=== PATIENT | female | born 1975 | race Caucasian/White ===

== ENCOUNTER 2016-12-13 10:50 | Emergency (ER) | payer OTHER ==
--- NOTE | 2016-12-13 12:56 | ED NURSING NOTES ---
Clinical Report - Nurses [facility] [place] [address] 12/13/2016 10:54 Patient: EUGENIO CARRERO TRIAGE Acuity: LEVEL 3. Chief Complaint: ABDOMINAL PAIN, NAUSEA and DIARRHEA. Alert. No acute distress. SEPSIS SCREEN: Sepsis Screen. Negative (no infection suspected/documented). --11:08 Jackie Mcclellan R.N. 11:00 12/13/16. BP: 104/46. HR: 72. RR: 20. O2 saturation: 100% on room air. Temp: 97.4 F. Pain level now: 03/01. --11:08 Jackie Mcclellan R.N. Weight: 100.6 kg stated. Height/Length: 62 inches Per Patient. BMI: 40.6. --11: Jackie Mcclellan R.N. Medications None. --11: Jackie Mcclellan R.N. Medication/allergy information source: the patient. --11: Jackie Mcclellan R.N. Allergies Non-Steroidal Antinflammatory. (hurts stomach) --11: Jackie Mcclellan R.N. History Arrived by private vehicle. Historian: patient. Accompanied by spouse. Primary physician (Gabino). This started last night. Describes the quality as "pain" and ( throbbing). Relates location as in the right lower quadrant. Notes pain level as 5/10 on arrival and 7/10 at maximum. Reports last BM was 4 am. Last oral intake by patient was (3 am). 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 PAST MEDICAL HX: Immunizations: up-to-date. Last normal menstrual period unknown. Sexual history - sexually active. Has had a tubal ligation. SOCIAL HX: Never smoker. Occasional alcohol use. Recent travel by car in the last two (2) weeks- [facility]. FALL RISK ASSESSMENT: Fall risk assessment completed. No fall risk identified. NUTRITIONAL RISK ASSESSMENT: The nutritional risk assessment revealed no deficiencies. FUNCTIONAL ASSESSMENT: Functional assessment: no impairments noted. LEARNING NEEDS ASSESSMENT: The learning needs assessment revealed no barriers. SKIN INTEGRITY ASSESSMENT: Skin integrity risk assessment completed. No skin integrity risk identified. --11: Jackie Mcclellan R.N. PROBLEMS: Migraine Headache. --11: Jackie Mcclellan R.N. ADDITIONAL SURGERIES: Cholecystectomy. . Cystoscopy. Hernia Repair. Tubal Ligation. --11: Jackie Mcclellan R.N. Foot surgery. Sinus Surgery. --11: Jacike Mcclellan R.N. Assessment GENERAL / NEURO / PSYCH: Alert. Oriented X 4. Appears in no acute distress. Patient appears calm and cooperative. RESPIRATORY: Respirations not labored. CVS: Capillary refill less than 2 seconds. GI / : Abdomen soft and nontender. SKIN: Mucous membranes are pink. Skin is warm and dry. --11: Jackie Mcclellan R.N. Interventions ID band on patient. To treatment room. --11: Jackie Mcclellan R.N. PHYSICAL ASSESSMENT 11:12/13/16. Ambulatory to room. Patient gowned. GENERAL / NEURO / PSYCH: Alert. Oriented X 4. Appears in no acute distress. HEENT: Mucous membranes are pink. RESPIRATORY: Respirations not labored. CVS: Capillary refill less than 2 seconds. GI / : Abdomen soft and nontender. SKIN: Skin is warm and dry. --11: Jackie Mcclellan R.N. NURSING PROGRESS NOTES 11:12/13/16. Patient gowned. Reassurance given. Two patient identifiers checked. Call light placed in reach. Side rails up x 1. Bed placed in lowest position. Brakes of bed on. Patient ready for evaluation- chart flagged and ED physician notified. --11: Jackie Mcclellan R.N. 11:43 12/13/2016 Site #1 started via IV in the right antecubital space with an 20g angiocath, with aseptic technique and good blood return; one attempt. Blood drawn: rainbow set. Labeled in the presence of the patient and sent to the lab. --11:43 Jackie Mcclellan R.N. 11:43 12/13/2016 Started bag #1 1000 mL IV Fluids IV NS (Saline); at 999 mL/hr over 1 hour(s) via site #1 via IV pump. Allergies verified and confirmed 5 rights. IV patency established. IV site checked: no pain, redness, or swelling. IV flushed thoroughly pre- and post-medication administration. --11:43 Jackie Mcclellan R.N. 11:45 12/13/2016 Zofran (Ondansetron HCl) IVP 4 mg given over 2 minute(s) via site #1. Allergies verified and confirmed 5 rights. IV patency established. IV site checked: no pain, redness, or swelling. IV flushed thoroughly pre- and post-medication administration. IVP given by RN. --11:45 Jackie Mcclellan R.N. 11:45 12/13/2016 Morphine IVP 4 mg given over 2 minute(s) via site #1. Allergies verified, confirmed 5 rights and sedative warning given to the patient. IV patency established. IV site checked: no pain, redness, or swelling. IV flushed thoroughly pre- and post-medication administration. IVP given by RN. --11:45 Jackie Mcclellan R.N. 12:20 12/13/2016 Morphine IVP Response: no adverse reaction symptoms have improved. --12:35 Jackie Mcclellan R.N. 12:31 12/13/2016 Bentyl (Dicyclomine HCl) PO 20 mg given. Allergies verified and confirmed 5 rights. --12:31 Jackie Mcclellan R.N. 12:43 12/13/2016 IV Fluids IV NS Discontinued: bag #1 infused. Total amount infused: 1000 mL. IV patency established. IV site checked: no pain, redness, or swelling. IV flushed thoroughly. --12:43 Jackie Mcclellan R.N. 13:06 12/13/2016 Site #1 removed upon discharge. Catheter intact. Manual pressure and bandage applied. --13:16 Jackie Mcclellan R.N. DISPOSITION / DISCHARGE Departure time: 13:Dec 13 2016. Condition at departure: improved and stable. No learning barriers present. Discharge instructions provided and reviewed with the patient and spouse. Reviewed medication(s) side effects, precautions and dosing information. Prescription(s) given to the patient (cm osorio). Reviewed liquid diet. Work note given. Patient and spouse verbalized understanding. Written instructions provided in Polish. The patient was discharged by the physician. She was discharged home and accompanied by spouse. She left the Emergency Department ambulatory and via private vehicle. Spouse driving. --13:15 Jackie Mcclellan R.N. 13:13 12/13/16. BP: 107/56. HR: 68. RR: 18. O2 saturation: 100% on room air. Temp: 98 F (oral). Pain level now: 11/30. --13:15 Jackie Mcclellan R.N. Locked/Released at 12/13/2016 13:16 by Jackie Mcclellan R.N.
--- NOTE | 2016-12-13 12:56 | ED ORDER SUMMARY ---
..... Patient: EUGENIO CARRERO OrderSheet [facility] VisitID: [id number] [address] [place] [address] 41y, F Registration Date/Time: 12/13/2016 ORDER SHEET Weight: 100.6 kg (stated) Allergies: Non-Steroidal Antinflammatory GENERAL ORDERS: CBC w Diff Urgent (11:12/13/2016 Rick Mccurdy) (Ack 11:27 TBergley) (11:45 MWinterer R.N.) CMP Urgent (11:12/13/2016 Rick Mccurdy) (Ack 11:27 TBergley) (11:45 MWinterer R.N.) UA-Culture if indicated Urgent (11:12/13/2016 Rick Mccurdy) (Ack 11:27 TBergley) (12:27 TBergley) Amylase Urgent (:12/13/2016 Rick Mccurdy) (Ack 11:27 TBergley) (11:45 MWinterer R.N.) Lipase Urgent (11:12/13/2016 Rick Mccurdy) (Ack 11:27 TBergley) (11:45 MWinterer R.N.) Urine Urgent (11:12/13/2016 Rick Mccurdy) (Ack 11:27 TBergley) (12:27 TBergley) MEDICATION ORDERS: Bentyl PO 20 mg (NOW) (12:12/13/2016 Rick Mccurdy) (Ack 12:28 MWinterer R.N.) (12:31 MWinterer R.N.) IV FLUIDS: IV NS : initial bolus none -, then 1000 mL/hr for X1 (NOW) (11:12/13/2016 Rick Mccurdy) (Ack 11:26 MWinterer R.N.) (11:43 MWinterer R.N.) Zofran IV 4 mg (NOW) (11:12/13/2016 Rick Mccurdy) (Ack 11:26 MWinterer R.N.) (11:45 MWinterer R.N.) Morphine IV 4 mg (HIGH ALERT MEDICATION, NOW) (11:25 12/13/2016 Rick Mccurdy) (Ack 11:26 MWinterer R.N.) (11:45 MWinterer R.N.) ORDER SHEET NOTES: [Electronically signed by Rony Rodriguez Dr. (13:02 12/13/2016)] [Electronically signed by Jackie Mcclellan R.N. (13:16 12/13/2016)] [Electronically locked/signed by Jackie Mcclellan R.N. (13:16 12/13/2016)]
--- NOTE | 2016-12-13 12:56 | ED CLINICAL REPORT ---
Clinical Report - Physicians/Mid Levels [facility] [address] [place] [address] 12/13/2016 10:54 Patient: EUGENIO CARRERO Time Seen: 11:03; initial patient contact. Arrived- By private vehicle. Historian- patient. HISTORY OF PRESENT ILLNESS Chief Complaint: ABDOMINAL PAIN. At its maximum, severity described as mild. When seen in the E.D., severity described as mild. Modifying factors. Not worsened by anything. Not relieved by anything. It is described as cramping. No radiation. It is described as located in the right abdomen and right lower quadrant. This started last night and is still present. The patient has had nausea, loss of appetite, vomiting and diarrhea. No recent travel. Similar symptoms previously: None. Recent medical care: The patient was seen recently in a clinic (sent here from .). REVIEW OF SYSTEMS No constipation, black stools, hematemesis, difficulty with urination or pain with urination. No urinary frequency, bloody stools, fever or chills. Denies current . Last bowel movement: recently. All systems otherwise negative, except as recorded above. PAST HISTORY Migraine Headache. SURGERIES: Cholecystectomy. . Cystoscopy. Hernia Repair. Tubal Ligation. Foot surgery. Sinus Surgery. SOCIAL HISTORY Never smoker. Occasional alcohol use. No drug use. ADDITIONAL NOTES The nursing notes have been reviewed. PHYSICAL EXAM Vital Signs: 12/13/2016 11:00 BP: 104/46. HR: 72. RR: 20. O2 saturation: 100%. Temp: 97.4 F. Pain level now: 7/10. Have been reviewed. Hypotensive. Heart rate normal. Respiratory rate normal. Temperature normal. Oxygen saturation normal. Appearance: Alert. Oriented X3. No acute distress. Eyes: Eyes normal inspection. No scleral icterus. ENT: Pharynx normal. CVS: Normal heart rate and rhythm. Heart sounds normal. Respiratory: No respiratory distress. Breath sounds normal. Abdomen: Soft. Mild tenderness in the right side of the abdomen. No guarding, rebound tenderness or Castillo's, obturator or psoas sign present. Bowel sounds normal. No organomegaly. No mass. Back: Normal inspection. No CVA tenderness. Skin: Skin warm and dry. Normal skin color. No rash. Extremities: No lower extremity edema. Neuro: Oriented X 3. LABS, X-RAYS, AND EKG Laboratory Tests: UA-Culture if indicated: (BOB: 12/13/2016 12:20) ( [facility] 12/13/2016 12:47) Final results Test Result Flag Units (Reference) URINE COLOR YELLOW URINE APPEARANCE SL CLOUDY URINE GLUCOSE NEGATIVE (NEGATIVE) URINE BILIRUBIN NEGATIVE (NEGATIVE) URINE KETONE NEGATIVE (NEGATIVE) URINE SPECIFIC GRAVITY 1.010 (1.010-1.030) URINE PH 6.0 (5.0-8.0) URINE PROTEIN NEGATIVE (NEGATIVE) URINE UROBILINOGEN 0.2 EU/dL (0.2-1.0) URINE NITRITE NEGATIVE (NEGATIVE) URINE BLOOD 1+ (NEGATIVE) URINE LEUK ESTERASE NEGATIVE (NEGATIVE) URINE RBC 1-3 rbc/hpf (0-1) URINE WBC 1-3 wbc/hpf (0-1) URINE EPITHELIAL CELLS 10-15 EPI/hpf (0-5) URINE BACTERIA TRACE (<1+) (NONE SEEN) URINE COMMENT CULT NOT INDICATED 1+ MUCOUSURINE CULTURES ARE SET-UP BASED ON THE FOLLOWING CRITERIA:POSITIVE NITRITEPOSITIVE LEUKOCYTE ESTERASEGREATER THAN 10 WHITE BLOOD CELLSMODERATE (2+) OR GREATER BACTERIA Urine: (BOB: 12/13/2016 12:20) ( [facility] 12/13/2016 12:42) Final results Test Result Flag Units (Reference) URINE NEGATIVE CBC w Diff: (BOB: 12/13/2016 11:45) ( [facility] 12/13/2016 12:01) Final results Test Result Flag Units (Reference) WHITE BLOOD COUNT 4.9 K/uL (4.5-11.5) RED BLOOD COUNT 4.52 M/uL (4.00-5.20) HEMOGLOBIN 13.4 gm/dL (12.0-16.0) HEMATOCRIT 41.0 % (36.0-46.0) MEAN CELL VOLUME 91 fL (80-100) MEAN CORPUSCULAR HGB 30 pg (26-34) MEAN CORPUSCULAR HGB CONC 33 g/dL (31-37) RED CELL DISTRIBUTION WIDTH 13.9 % (11.6-14.8) PLATELET COUNT 246 K/uL (150-400) NEUTROPHIL % 51.8 % (50-75) LYMPH % 33.4 % (25-40) MONO % 9.5 % (3-14) EOSINOPHIL % 4.9 H % (0-4) BASOPHIL % 0.4 % (0-2) CMP: (BOB: 12/13/2016 11:45) ( MsgRcvd 12/13/2016 12:10) Final results Test Result Flag Units (Reference) GLUCOSE 80 mg/dL (70-110) BUN 18 mg/dL (7-18) CREATININE 0.8 mg/dL (0.6-1.3) Estimated GFR >60 mL/min Estimated GFR- >60 mL/min Note: Persistent reduction over 3 months in eGFR<60 mL/min/1.73 m2 defines CKD. Patients with eGFR values>=60 mL/min/1.73 m2 may also have CKD if evidence ofpersistent proteinuria. Additional information may be foundat www.kidney.org. SODIUM 141 mmol/L (136-145) POTASSIUM 3.7 mmol/L (3.5-5.1) CHLORIDE 105 mmol/L (98-107) CARBON DIOXIDE 28 mmol/L (21-32) CALCIUM 8.6 mg/dL (8.5-10.1) TOTAL PROTEIN 7.1 g/dL (6.4-8.2) ALBUMIN 3.5 g/dL (3.3-5.0) BILIRUBIN, TOTAL 0.5 mg/dL (0.0-1.0) ALKALINE PHOSPHATASE 72 U/L (46-116) AST (SGOT) 21 U/L (15-37) ALT (SGPT) 22 U/L (12-78) LIPASE 128 U/L (73-393) AMYLASE 77 U/L (25-115) . PROGRESS AND PROCEDURES Course of Care: 13:16. Evaluation after repeat exam, IV fluids, IV antiemetic and antispasmodic. Physical exam findings are improved. Symptoms much better. Disposition: Discharged home in good and improved condition. Condition: good. CLINICAL IMPRESSION Acute viral gastroenteritis. INSTRUCTIONS Do not work tomorrow. Drink plenty of fluids. Your Current Medications: CONTINUE TAKING THE FOLLOWING MEDICATIONS: None*. Prescription Medications: Zofran (orally disintegrating tablets) 4 mg: take 1 orally every 6 hours as needed for nausea and vomiting. Dispense ten (10). No refill. Substitution is permissible. Bentyl 20 mg tablets: take 1 orally every 6 hours as needed for abdominal cramps or abdominal discomfort. Dispense thirty (30). No refill. Substitution is permissible. Follow-up: Follow up with your doctor in about two days. Call for an appointment. Screening today revealed the patient's blood pressure to be in the normal range. (Electronically signed by Rony Rodriguez Dr. 12/13/2016 13:02)
--- NOTE | 2016-12-13 12:56 | ED NURSING NOTES ---
Clinical Report - Nurses [facility] [place] [address] 12/13/2016 10:54 Patient: EUGENIO CARRERO TRIAGE Acuity: LEVEL 3. Chief Complaint: ABDOMINAL PAIN, NAUSEA and DIARRHEA. Alert. No acute distress. SEPSIS SCREEN: Sepsis Screen. Negative (no infection suspected/documented). --11:08 Jackie Mcclellan R.N. 11:00 12/13/16. BP: 104/46. HR: 72. RR: 20. O2 saturation: 100% on room air. Temp: 97.4 F. Pain level now: 03/01. --11:08 Jackie Mcclellan R.N. Weight: 100.6 kg stated. Height/Length: 62 inches Per Patient. BMI: 40.6. --11: Jackie Mcclellan R.N. Medications None. --11: Jackie Mcclellan R.N. Medication/allergy information source: the patient. --11: Jackie Mcclellan R.N. Allergies Non-Steroidal Antinflammatory. (hurts stomach) --11: Jackie Mcclellan R.N. History Arrived by private vehicle. Historian: patient. Accompanied by spouse. Primary physician (Gabino). This started last night. Describes the quality as "pain" and ( throbbing). Relates location as in the right lower quadrant. Notes pain level as 5/10 on arrival and 7/10 at maximum. Reports last BM was 4 am. Last oral intake by patient was (3 am). 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 PAST MEDICAL HX: Immunizations: up-to-date. Last normal menstrual period unknown. Sexual history - sexually active. Has had a tubal ligation. SOCIAL HX: Never smoker. Occasional alcohol use. Recent travel by car in the last two (2) weeks- [facility]. FALL RISK ASSESSMENT: Fall risk assessment completed. No fall risk identified. NUTRITIONAL RISK ASSESSMENT: The nutritional risk assessment revealed no deficiencies. FUNCTIONAL ASSESSMENT: Functional assessment: no impairments noted. LEARNING NEEDS ASSESSMENT: The learning needs assessment revealed no barriers. SKIN INTEGRITY ASSESSMENT: Skin integrity risk assessment completed. No skin integrity risk identified. --11: Jackie Mcclellan R.N. PROBLEMS: Migraine Headache. --11: Jackie Mcclellan R.N. ADDITIONAL SURGERIES: Cholecystectomy. . Cystoscopy. Hernia Repair. Tubal Ligation. --11: Jackie Mcclellan R.N. Foot surgery. Sinus Surgery. --11: Jackie Mcclellan R.N. Assessment GENERAL / NEURO / PSYCH: Alert. Oriented X 4. Appears in no acute distress. Patient appears calm and cooperative. RESPIRATORY: Respirations not labored. CVS: Capillary refill less than 2 seconds. GI / : Abdomen soft and nontender. SKIN: Mucous membranes are pink. Skin is warm and dry. --11: Jackie Mcclellan R.N. Interventions ID band on patient. To treatment room. --11: Jackie Mcclellan R.N. PHYSICAL ASSESSMENT 11:12/13/16. Ambulatory to room. Patient gowned. GENERAL / NEURO / PSYCH: Alert. Oriented X 4. Appears in no acute distress. HEENT: Mucous membranes are pink. RESPIRATORY: Respirations not labored. CVS: Capillary refill less than 2 seconds. GI / : Abdomen soft and nontender. SKIN: Skin is warm and dry. --11: Jackie Mcclellan R.N. NURSING PROGRESS NOTES 11:12/13/16. Patient gowned. Reassurance given. Two patient identifiers checked. Call light placed in reach. Side rails up x 1. Bed placed in lowest position. Brakes of bed on. Patient ready for evaluation- chart flagged and ED physician notified. --11: Jackie Mcclellan R.N. 11:43 12/13/2016 Site #1 started via IV in the right antecubital space with an 20g angiocath, with aseptic technique and good blood return; one attempt. Blood drawn: rainbow set. Labeled in the presence of the patient and sent to the lab. --11:43 Jackie Mcclellan R.N. 11:43 12/13/2016 Started bag #1 1000 mL IV Fluids IV NS (Saline); at 999 mL/hr over 1 hour(s) via site #1 via IV pump. Allergies verified and confirmed 5 rights. IV patency established. IV site checked: no pain, redness, or swelling. IV flushed thoroughly pre- and post-medication administration. --11:43 Jackie Mcclellan R.N. 11:45 12/13/2016 Zofran (Ondansetron HCl) IVP 4 mg given over 2 minute(s) via site #1. Allergies verified and confirmed 5 rights. IV patency established. IV site checked: no pain, redness, or swelling. IV flushed thoroughly pre- and post-medication administration. IVP given by RN. --11:45 Jackie Mcclellan R.N. 11:45 12/13/2016 Morphine IVP 4 mg given over 2 minute(s) via site #1. Allergies verified, confirmed 5 rights and sedative warning given to the patient. IV patency established. IV site checked: no pain, redness, or swelling. IV flushed thoroughly pre- and post-medication administration. IVP given by RN. --11:45 Jackie Mcclellan R.N. 12:20 12/13/2016 Morphine IVP Response: no adverse reaction symptoms have improved. --12:35 Jackie Mcclellan R.N. 12:31 12/13/2016 Bentyl (Dicyclomine HCl) PO 20 mg given. Allergies verified and confirmed 5 rights. --12:31 Jackie Mcclellan R.N. 12:43 12/13/2016 IV Fluids IV NS Discontinued: bag #1 infused. Total amount infused: 1000 mL. IV patency established. IV site checked: no pain, redness, or swelling. IV flushed thoroughly. --12:43 Jackie Mcclellan R.N. 13:06 12/13/2016 Site #1 removed upon discharge. Catheter intact. Manual pressure and bandage applied. --13:16 Jackie Mcclellan R.N. DISPOSITION / DISCHARGE Departure time: 13:Dec 13 2016. Condition at departure: improved and stable. No learning barriers present. Discharge instructions provided and reviewed with the patient and spouse. Reviewed medication(s) side effects, precautions and dosing information. Prescription(s) given to the patient (cm osorio). Reviewed liquid diet. Work note given. Patient and spouse verbalized understanding. Written instructions provided in Turkmen. The patient was discharged by the physician. She was discharged home and accompanied by spouse. She left the Emergency Department ambulatory and via private vehicle. Spouse driving. --13:15 Jackie Mcclellan R.N. 13:13 12/13/16. BP: 107/56. HR: 68. RR: 18. O2 saturation: 100% on room air. Temp: 98 F (oral). Pain level now: 11/30. --13:15 Jackie Mcclellan R.N. Locked/Released at 12/13/2016 13:16 by Jackie Mcclellan R.N.
--- NOTE | 2016-12-13 12:56 | ED ORDER SUMMARY ---
..... Patient: EUGENIO CARRERO OrderSheet [facility] VisitID: [id number] [address] [place] [address] 41y, F Registration Date/Time: 12/13/2016 ORDER SHEET Weight: 100.6 kg (stated) Allergies: Non-Steroidal Antinflammatory GENERAL ORDERS: CBC w Diff Urgent (11:12/13/2016 Rick Mccurdy) (Ack 11:27 TBergley) (11:45 MWinterer R.N.) CMP Urgent (11:12/13/2016 Rick Mccurdy) (Ack 11:27 TBergley) (11:45 MWinterer R.N.) UA-Culture if indicated Urgent (11:12/13/2016 Rick Mccurdy) (Ack 11:27 TBergley) (12:27 TBergley) Amylase Urgent (:12/13/2016 Rick Mccurdy) (Ack 11:27 TBergley) (11:45 MWinterer R.N.) Lipase Urgent (11:12/13/2016 Rick Mccurdy) (Ack 11:27 TBergley) (11:45 MWinterer R.N.) Urine Urgent (11:12/13/2016 Rick Mccurdy) (Ack 11:27 TBergley) (12:27 TBergley) MEDICATION ORDERS: Bentyl PO 20 mg (NOW) (12:12/13/2016 Rick Mccurdy) (Ack 12:28 MWinterer R.N.) (12:31 MWinterer R.N.) IV FLUIDS: IV NS : initial bolus none -, then 1000 mL/hr for X1 (NOW) (11:12/13/2016 Rick Mccurdy) (Ack 11:26 MWinterer R.N.) (11:43 MWinterer R.N.) Zofran IV 4 mg (NOW) (11:12/13/2016 Rick Mccurdy) (Ack 11:26 MWinterer R.N.) (11:45 MWinterer R.N.) Morphine IV 4 mg (HIGH ALERT MEDICATION, NOW) (11:25 12/13/2016 Rick Mccurdy) (Ack 11:26 MWinterer R.N.) (11:45 MWinterer R.N.) ORDER SHEET NOTES: [Electronically signed by Rony Rodriguez Dr. (13:02 12/13/2016)] [Electronically signed by Jackie Mcclellan R.N. (13:16 12/13/2016)] [Electronically locked/signed by Jackie Mcclellan R.N. (13:16 12/13/2016)]
--- NOTE | 2016-12-13 13:16 | ED MAR SUMMARY ---
..... Medication Administration Record [facility] [address] [place] [address] Patient: EUGENIO CARRERO Visit ID: [id number] 41y, F Weight: 100.6 kg Height/Length: 62 in BMI: 40.6 ALLERGIES: Non-Steroidal Antinflammatory Start 11:12/13/2016 Jackie Mcclellan R.N., Stop 12:12/13/2016 Jackie Mcclellan R.N. Medication Administered: IV NS (SALINE), Dose: IV Fluids over 1 hour(s), Rate: 999 mL/hr, Dispensed: 1000 mL bag, Site: #1 right AC. Medication Ordered: IV NS : initial bolus none -, then 1000 mL/hr for X1 (NOW). Given 11:12/13/2016 Jackie Mcclellan R.N. Medication Administered: ZOFRAN [IVP] (ONDANSETRON HCL), Dose: 4 mg IVP over 2 minute(s), Site: #1 right AC. Medication Ordered: Zofran IV 4 mg (NOW). Given 11:12/13/2016 Jackie Mcclellan R.N. Medication Administered: MORPHINE [IVP], Dose: 4 mg IVP over 2 minute(s), Site: #1 right AC. Medication Ordered: Morphine IV 4 mg (HIGH ALERT MEDICATION, NOW). Given 12:12/13/2016 Jackie Mcclellan R.N. Medication Administered: BENTYL [PO] (DICYCLOMINE HCL), Dose: 20 mg PO. Medication Ordered: Bentyl PO 20 mg (NOW).
--- NOTE | 2016-12-13 13:16 | ED MED RECONCILIATION SUMMARY ---
Patient: EUGENIO CARRERO Medication Reconciliation Report [facility] VisitID: [id number] [address] [place] [address] 41y, F Registration Date/Time: 12/13/2016 Weight: 100.6 kg Height/Length: 62 in. BMI: 40.6 ALLERGIES: Non-Steroidal Antinflammatory The patient's Home Medications are listed below: NONE. The source(s) of the original Home Medication information: patient The following Medications were given to the patient in the Emergency Department: IV NS IV Fluids bolus 0, then 999 mL/hr, administered: 12/13/2016 11:43:00 AM Zofran [IVP] IVP 4 mg, administered: 12/13/2016 11:45:00 AM Morphine [IVP] IVP 4 mg, administered: 12/13/2016 11:45:00 AM Bentyl [PO] PO 20 mg, administered: 12/13/2016 12:31:00 PM The following Medications were prescribed to the patient: Zofran (orally disintegrating tablets) 4 mg: take 1 orally every 6 hours as needed for nausea and vomiting. Dispense ten (10). No refill. Substitution is permissible. -- Rony Rodriguez Dr. Bentyl 20 mg tablets: take 1 orally every 6 hours as needed for abdominal cramps or abdominal discomfort. Dispense thirty (30). No refill. Substitution is permissible. -- Rony Rodriguez Dr.
--- NOTE | 2016-12-13 13:16 | ED MAR SUMMARY ---
..... Medication Administration Record [facility] [address] [place] [address] Patient: EUGENIO CARRERO Visit ID: [id number] 41y, F Weight: 100.6 kg Height/Length: 62 in BMI: 40.6 ALLERGIES: Non-Steroidal Antinflammatory Start 11:12/13/2016 Jackie Mcclellan R.N., Stop 12:12/13/2016 Jackie Mcclellan R.N. Medication Administered: IV NS (SALINE), Dose: IV Fluids over 1 hour(s), Rate: 999 mL/hr, Dispensed: 1000 mL bag, Site: #1 right AC. Medication Ordered: IV NS : initial bolus none -, then 1000 mL/hr for X1 (NOW). Given 11:12/13/2016 Jackie Mcclellan R.N. Medication Administered: ZOFRAN [IVP] (ONDANSETRON HCL), Dose: 4 mg IVP over 2 minute(s), Site: #1 right AC. Medication Ordered: Zofran IV 4 mg (NOW). Given 11:12/13/2016 Jackie Mcclellan R.N. Medication Administered: MORPHINE [IVP], Dose: 4 mg IVP over 2 minute(s), Site: #1 right AC. Medication Ordered: Morphine IV 4 mg (HIGH ALERT MEDICATION, NOW). Given 12:12/13/2016 Jackie Mcclellan R.N. Medication Administered: BENTYL [PO] (DICYCLOMINE HCL), Dose: 20 mg PO. Medication Ordered: Bentyl PO 20 mg (NOW).
--- NOTE | 2016-12-13 13:16 | ED MED RECONCILIATION SUMMARY ---
Patient: EUGENIO CARRERO Medication Reconciliation Report [facility] VisitID: [id number] [address] [place] [address] 41y, F Registration Date/Time: 12/13/2016 Weight: 100.6 kg Height/Length: 62 in. BMI: 40.6 ALLERGIES: Non-Steroidal Antinflammatory The patient's Home Medications are listed below: NONE. The source(s) of the original Home Medication information: patient The following Medications were given to the patient in the Emergency Department: IV NS IV Fluids bolus 0, then 999 mL/hr, administered: 12/13/2016 11:43:00 AM Zofran [IVP] IVP 4 mg, administered: 12/13/2016 11:45:00 AM Morphine [IVP] IVP 4 mg, administered: 12/13/2016 11:45:00 AM Bentyl [PO] PO 20 mg, administered: 12/13/2016 12:31:00 PM The following Medications were prescribed to the patient: Zofran (orally disintegrating tablets) 4 mg: take 1 orally every 6 hours as needed for nausea and vomiting. Dispense ten (10). No refill. Substitution is permissible. -- Rony Rodriguez Dr. Bentyl 20 mg tablets: take 1 orally every 6 hours as needed for abdominal cramps or abdominal discomfort. Dispense thirty (30). No refill. Substitution is permissible. -- Rony Rodriguez Dr.
--- NOTE | 2016-12-13 13:16 | ED DISCHARGE INSTRUCTIONS ---
Patient: EUGENIO CARRERO General Instructions [facility] VisitID: [id number] [place] [address] 41y, F Registration Date/Time: 12/13/2016 Acute viral gastroenteritis. INSTRUCTIONS Do not work tomorrow. Drink plenty of fluids. Your Current Medications: CONTINUE TAKING THE FOLLOWING MEDICATIONS: None*. Prescription Medications: Zofran (orally disintegrating tablets) 4 mg: take 1 orally every 6 hours as needed for nausea and vomiting. Dispense ten (10). No refill. Substitution is permissible. Bentyl 20 mg tablets: take 1 orally every 6 hours as needed for abdominal cramps or abdominal discomfort. Dispense thirty (30). No refill. Substitution is permissible. Follow-up: Follow up with your doctor in about two days. Call for an appointment. Screening today revealed the patient's blood pressure to be in the normal range. ADDITIONAL INFORMATION Viral Gastroenteritis (6Yr-Adult) Gastroenteritis is another name for thestomach flu.It is most often caused by a virus that affects the stomach and intestinal tract. Symptoms include stomach cramping and fever, vomiting and/or diarrhea, and can last from 2 to 7 days. The danger from repeated vomiting or diarrhea is dehydration. This is the loss of too much water and minerals from the body. When this occurs, body fluids must be replaced. Antibiotics are not effective for this illness, but simple home treatment will be helpful. Home Care If symptoms are severe, rest at home for the next 24 hours. Avoid tobacco, caffeine, and alcohol use, which can worsen symptoms. Acetaminophen (Tylenol) or ibuprofen (Motrin, Advil) may be usedfor fever or pain unless another medication was prescribed. NOTE: If you have chronic liver or kidney disease or ever had a stomach ulcer or GI bleeding, talk with your doctor before using these medicines. Aspirin should never be used in anyone under 18 years of age who is ill with a fever. It may cause severe liver damage. If medicines for diarrhea or vomiting were prescribed, be sure they are takenonly as directed. If vomiting, drink small amounts of clear fluids (such as water, sports drinks, clear sodas) at frequent intervals to prevent dehydration. Start with 1 to 2 tablespoons every 10 minutes. Once vomiting stops, follow these guidelines: During The First 12 To 24 Hours follow the diet below: Beverages: Sport drinks like Gatorade, soft drinks without caffeine; rosalina alanis, mineral water (plain or flavored), decaffeinated tea and coffee. Soups: Clear broth, consomm and bouillon Desserts: Plain gelatin (Jell-O), Popsicles and fruit juice bars. During The Next 24 Hours you may add the following to the above: Hot cereal, plain toast, bread, rolls, crackers Plain noodles, rice, mashed potatoes, chicken noodle or rice soup Unsweetened canned fruit (avoid pineapple), bananas Limit fat intake to less than 15 grams per day by avoiding margarine, butter, oils, mayonnaise, sauces, gravies, fried foods, peanut butter, meat, poultry, and fish. Limit fiber; avoid raw or cooked vegetables, fresh fruits (except bananas), and bran cereals. Limit caffeine and chocolate. Do not use spices or seasonings except salt. During The Next 24 Hours The patient can gradually resume a normal diet as symptoms lessen. Preventing Spread Hand washing with soap and water is the best way to prevent the spread of viruses. Caregivers should wash their hands before andafter touching the sick person. The sick person, as well as everyone in the family,should wash their hands after using the toilet and before meals. Clean the toilet after each use. People with diarrhea should not prepare food for others. If you are preparing your own foods, wash your hands before and after. Follow Up with your doctor as advised. Call your doctor if you are not improving over the next 2 to 3 days. If a stool (diarrhea) sample was taken, you may call in 2 days (or as directed) for the results. Get Prompt Medical Attention if any of the following occur: Increasing abdominal pain Continued vomiting (unable to keep liquids down) Frequent diarrhea (more than 5 times a day) Blood in vomit or stool (black or red color) Dark urine, reduced urine output, or extreme thirst Weakness, dizziness, fainting Drowsiness, confusion, stiff neck, or seizure Fever of 100.4F (38C) oral or higher, not better with fever medication New rash Ondansetron Oral disintegrating tablet What is this medicine? ONDANSETRON (on ERROL se dakotah) is used to treat nausea and vomiting caused by chemotherapy. It is also used to prevent or treat nausea and vomiting after surgery. How should I use this medicine? These tablets are made to dissolve in the mouth. Do not try to push the tablet through the foil backing. With dry hands, peel away the foil backing and gently remove the tablet. Place the tablet in the mouth and allow it to dissolve, then swallow. While you may take these tablets with water, it is not necessary to do so. Talk to your aircraft engine mechanic overhaul regarding the use of this medicine in children. Special care may be needed. What side effects may I notice from receiving this medicine? Side effects that you should report to your doctor or health health care sanitary technician as soon as possible: allergic reactions like skin rash, itching or hives, swelling of the face, lips, or tongue breathing problems dizziness fast or irregular heartbeat feeling faint or lightheaded, falls fever and chills swelling of the hands and feet tightness in the chest Side effects that usually do not require medical attention (report to your doctor or health health care sanitary technician if they continue or are bothersome): constipation or diarrhea headache What may interact with this medicine? Do not take this medicine with any of the following medications: -apomorphine -cisapride -dofetilide -dronedarone -pimozide -thioridazine -ziprasidone This medicine may also interact with the following medications: -carbamazepine -phenytoin -rifampicin -tramadol -other medicines that prolong the QT interval (cause an abnormal heart rhythm) What if I miss a dose? If you miss a dose, take it as soon as you can. If it is almost time for your next dose, take only that dose. Do not take double or extra doses. Where should I keep my medicine? Keep out of the reach of children. Store between 2 and 30 degrees C (36 and 86 degrees F). Throw away any unused medicine after the expiration date. What should I tell my health care provider before I take this medicine? They need to know if you have any of these conditions: heart disease history of irregular heartbeat liver disease low levels of magnesium or potassium in the blood an unusual or allergic reaction to ondansetron, granisetron, other medicines, foods, dyes, or preservatives or trying to get breast-feeding What should I watch for while using this medicine? Check with your doctor or health health care sanitary technician as soon as you can if you have any sign of an allergic reaction. Dicyclomine Hydrochloride Oral tablet What is this medicine? DICYCLOMINE (dye SYE bola pugaen) is used to treat bowel problems including irritable bowel syndrome. How should I use this medicine? Take this medicine by mouth with a glass of water. Follow the directions on the prescription label. It is best to take this medicine on an empty stomach, 30 minutes to 1 hour before meals. Take your medicine at regular intervals. Do not take your medicine more often than directed. Talk to your aircraft engine mechanic overhaul regarding the use of this medicine in children. Special care may be needed. While this drug may be prescribed for children as young as 6 months of age for selected conditions, precautions do apply. Patients over 65 years old may have a stronger reaction and need a smaller dose. What side effects may I notice from receiving this medicine? Side effects that you should report to your doctor or health health care sanitary technician as soon as possible: agitation, nervousness, confusion difficulty swallowing dizziness, drowsiness fast or slow heartbeat hallucinations pain or difficulty passing urine Side effects that usually do not require medical attention (report to your doctor or health health care sanitary technician if they continue or are bothersome): constipation headache nausea or vomiting sexual difficulty What may interact with this medicine? amantadine antacids benztropine digoxin disopyramide medicines for allergies, colds and breathing difficulties medicines for alzheimer's disease medicines for anxiety or sleeping problems medicines for depression or psychotic disturbances medicines for diarrhea medicines for pain metoclopramide tegaserod What if I miss a dose? If you miss a dose, take it as soon as you can. If it is almost time for your next dose, take only that dose. Do not take double or extra doses. Where should I keep my medicine? Keep out of the reach of children. Store at room temperature below 30 degrees C (86 degrees F). Protect from light. Throw away any unused medicine after the expiration date. What should I tell my health care provider before I take this medicine? They need to know if you have any of these conditions: difficulty passing urine esophagus problems or heartburn glaucoma heart disease, or previous heart attack myasthenia gravis prostate trouble stomach infection, or obstruction ulcerative colitis an unusual or allergic reaction to dicyclomine, other medicines, foods, dyes, or preservatives or trying to get breast-feeding What should I watch for while using this medicine? You may get drowsy, dizzy, or have blurred vision. Do not drive, use machinery, or do anything that needs mental alertness until you know how this medicine affects you. To reduce the risk of dizzy or fainting spells, do not sit or stand up quickly, especially if you are an older patient. Alcohol can make you more drowsy, avoid alcoholic drinks. Stay out of bright light and wear sunglasses if this medicine makes your eyes more sensitive to light. Avoid extreme heat (hot tubs, saunas). This medicine can cause you to sweat less than normal. Your body temperature could increase to dangerous levels, which may lead to heat stroke. Antacids can stop this medicine from working. If you get an upset stomach and want to take an antacid, make sure there is an interval of at least 1 to 2 hours before or after you take this medicine. Your mouth may get dry. Chewing sugarless gum or sucking hard candy, and drinking plenty of water may help. Contact your doctor if the problem does not go away or is severe. You have been given the following additional information: Gastroenteritis, Viral (6Y-Adult) Ondansetron Oral disintegrating tablet Dicyclomine Hydrochloride Oral tablet Do not work tomorrow. (Electronically signed by Rony Rodriguez Dr. 12/13/2016 13:02)
== END 2016-12-13 13:05 | disposition home or self-care (01) ==
LOC: ED SRH 10:50
DX: A08.4 Viral intestinal infection, unspecified (principal); Z88.6 Allergy status to analgesic agent
CPT/HCPCS: 90004; 90100; 92235; 92530; 93070; 95059